=== PATIENT | female | born 2000 | race Two or more races ===

== ENCOUNTER 2025-03-02 17:23 | Emergency (ER) | payer OTHER, SELFPAY ==
[2025-03-02 17:24] VITALS: PULSE 100; RESP 12; O2SAT 100; BMI 28.7
[2025-03-02 17:30] VITALS: BP 139/86; PULSE 113; RESP 20; TEMP 37.1; O2SAT 98
--- NOTE | 2025-03-02 17:30 | XR_ITS ---
EXAMINATION: Ankle, left 3 views. Technique: Ankle AP, oblique, lateral 3 views Date and time of exam: March 02, 2025, 1742 hours INDICATIONS: Injury to the ankle today, ankle pain. FINDINGS: Lateral malleolar soft tissue swelling No ankle fracture or dislocation IMPRESSION: No ankle fracture or dislocation
--- NOTE | 2025-03-02 17:32 | PD.EDANKLE ---
Lower Extremity Injury RME/HPI General Chief Complaint: Ankle/Foot Injury Stated Complaint: RIGHT ANKLE PAIN Time Seen by Provider: 03/02/25 17:25 Arrival date/time: 03/02/25 17:23 24-year-old female patient was brought in by EMS for evaluation regarding left ankle sprain. Patient was working carrying boxes, accidentally twisted the left ankle resulting into swelling. Patient also complaining of pain, described as sharp pain, severity moderate. Denies any knee pain denies any other injury no medication was taken prior to ER visit. Incident happened few minutes prior to ER visit. Related Data Previous Rx's ?Medication ?Instructions ?Recorded ibuprofen 800 mg tablet 800 mg PO Q8H PRN pain #30 tabs 03/02/25 Allergies Allergy/AdvReac Type Severity Reaction Status Date / Time No Known Allergies Allergy Verified 03/02/25 17:30 Review of Systems Review of Systems Narrative Review of Systems: Review of system reviewed and within normal limits except mentioned in HPI ED Exam Narrative Physical exam: VITAL SIGNS: Reviewed. GENERAL APPEARANCE: Alert and interactive, follows commands, no acute distress, HEAD AND FACE: Non-traumatic. ENT: PERRL, pink conjunctivitis, eyelid no trauma, Mucous membrane moist. NECK: Supple, nontender, no nuchal rigidity. CHEST: No tenderness, no crepitus, no paradoxical movement, no retractions. LUNGS: Clear, well ventilated, symmetric, no rales, no wheezing, no ronchi, no stridor, good breath sounds bilaterally. HEART: Regular rate, regular rhythm, no murmur, no gallops. ABDOMEN: Soft, positive bowel sounds, nondistended, no guarding, nontender, no rebound, no masses, RECTAL: Deferred. GENITAL: Deferred. NEUROLOGICAL: Gross motor function intact sensory function intact, Appropriate for age. MUSCULOSKELETAL: low back nontender, full range of motion. EXTREMITIES: Left ankle tenderness, swelling especially on the lateral aspect of the ankle,, full range of motion. No crepitus full range of motion SKIN: Color pink, dry, no rash, no lacerations, no abrasions, no contusions. LYMPHATICS: Deferred. Course Quality Measures none Orders Category Date Time Status Crutches .NOW Care 03/02/25 18:51 Active madi wrap [Splint / Immobilizer] STAT Care 03/02/25 18:51 Active XR ankle comp LT min 3V Stat Exams 03/02/25 17:30 Completed HYDROcodone/APAP 10/325 [[place] 10/325] Med 03/02/25 19:51 Discontinued 1 tab PO X1 ONE Ibuprofen Tab [Motrin Tab] Med 03/02/25 17:30 Discontinued 800 mg PO X1 ONE Vital Signs Vital signs: Vital Signs Temperature 98.8 F 03/02/25 17:30 Pulse Rate 113 H 03/02/25 17:30 Respiratory Rate 20 03/02/25 17:30 Blood Pressure 139/86 H 03/02/25 17:30 Pulse Oximetry (%) 98 03/02/25 17:30 Oxygen Delivery Method Room Air 03/02/25 17:30 Extremity Injury, Lower MDM Narrative MDM Narrative:: 24-year-old female patient was brought in by EMS for evaluation regarding left ankle sprain. Patient was working carrying boxes, accidentally twisted the left ankle resulting into swelling. Patient also complaining of pain, described as sharp pain, severity moderate. Denies any knee pain denies any other injury no medication was taken prior to ER visit. Incident happened few minutes prior to ER visit. X-ray of the ankle came back unremarkable no fracture noted. Patient was placed on an Madi wrap with ankle splint. Supplied with crutches to discharge home Patient data External records reviewed:: None Clinical information provided by:: patient and family Social determinants that could affect healthcare access:: none Patient has the following chronic illnesses:: None How is presenting disease/condition affected by chronic disease/condition?: no chronic disease Evaluation data The following diagnostics were reviewed and interpreted by me:: radiology exam(s) Lab and/or radiology exams considered but not ordered:: None Interpretation Summary: Stable Medications / Prescriptions Medications or Prescriptions considered but not ordered:: None Medication administrations:: Medication Administration History Discontinued Medications Hydrocodone Bitart/Acetaminophen (Hydrocodone/Apap 10/325 Tab) 1 tab PO X1 ONE Stop: 03/02/25 19:52 Last Admin: 03/02/25 20:09 Dose: 1 tab Documented By: MAIDA Ibuprofen (Ibuprofen Tab 400 Mg Tablet) 800 mg PO X1 ONE Stop: 03/02/25 17:31 Last Admin: 03/02/25 17:37 Dose: 800 mg Documented By: SHANAE Tranrin Consultations Consultation(s) initiated? (list below): No Diagnosis Extremity Injury, Lower Differential Diagnosis: ankle sprain and strain, fracture of toe and ankle fracture Most likely diagnosis given after review of the tests above:: Ankle sprain Admission Indicated Admission indicated?: not indicated Admission Request Was there a request for admission?: No Disposition Plan Disposition Plan: Discharge Discharge Attestation Discharge Attestation: The patient and all family members were given an opportunity to ask questions and understood the discharge instructions. Discharge instructions specifically effects, indications for sooner follow up or return to the emergency department, and the expected course of current diagnosis. Patient condition: Stable Discharge Plan Plan Patient Disposition: HOME (Self Care) Discharge Disposition comment: Stable Prescriptions/Referrals Prescriptions/Med Rec: New ibuprofen 800 mg tablet 800 mg PO Q8H PRN (Reason: pain) Qty: 30 0RF Referrals: No Primary/Family,Physician [Primary Care Provider] - In 1 week Problem List Clinical Impression: Ankle sprain Patient/Caregiver Discharge Instructions Discharge Activity: activity as tolerated Education Materials: Treating Ankle Sprains Additional Instructions: Thank you for the opportunity for serving you today. You are stable for discharged . You are advised to: Follow-up with your PCP in 1 to 2 days Return to ED for worsening of symptoms Increase oral fluids Take medication as prescribed Elevate your legs as needed Wear your ankle splint as needed for pain Ambulate with crutches Print Language: Bel[place]ian Stand Alone Forms: Padma Award Info., Patient Portal Info Letter EVONNE/DAWIT Supervising Physician EVONNE/DAWIT Supervising Physician: MD Dontrell
[2025-03-02] MEDS: IBUPROFEN TAB 400 MG TABLET 800 MG PO (17:37)
== END 2025-03-02 21:05 | disposition home or self-care (01) ==
PROVIDERS: Emergency Provider Family Medicine
DX: S93.402A Sprain of unspecified ligament of left ankle, initial encounter (principal); X50.1XXA Overexertion from prolonged static or awkward postures, initial encounter
CPT/HCPCS: 73610; 99283; A9270